=== PATIENT | male | born 1985 | race African-American/Black ===

== ENCOUNTER 2021-03-29 22:02 | Emergency (ER) | payer OTHER ==
[~2021-03-29] VITALS: Ht 175.3 cm; Wt 100.0 kg
[2021-03-30 02:00] VITALS: BP 129/83
[2021-03-30] MEDS ORDERED: LIDOCAINE 1% Multi-Dose 20 ML VIAL. INJ ONE (03:00)
--- NOTE | 2021-03-30 03:26 | PHYS DOC ---
Past Medical History Past Surgical History: No Surgical History Smoking Status: Never Smoker Alcohol Use: Occasionally General Adult EDM: Chief Complaint: LACERATION/AVULSION HPI: HPI: Patient is a 35 year old male who presents with a laceration of his left pinky finger. Was reaching into a trash can and cut himself on something sharp. He is unsure what the object was. States his tetanus is up-to-date. Ran his finger under a sink for copious irrigation prior to arrival. Occurred at approximately 9:30 PM. Review of Systems: Review of Systems: Integument: Reports laceration to left pinky finger Heart Score: C/O Chest Pain: N/A Current Medications: Current Medications Medications (Trade) Dose Ordered Sig/Jennifer Start Time Stop Time Status Last Admin Dose Admin Lidocaine HCl (Lidocaine 1% 20ml Vial) 20 ml 1X ONCE 03/30/21 03:00 03/30/21 03:01 DC 03/30/21 02:32 20 ML Allergies: Allergies: Allergies Coded Allergies Type Severity Reaction Last Updated Verified No Known Drug Allergies 03/30/21 No Physical Exam: PE: Constitutional: Well developed, well nourished, no acute distress, non-toxic appearance. [] Cardiovascular: Regular heart Lungs & Thorax: Normal work of breathing Skin: 2.5 cm laceration to the pinky finger oriented longitudinally. Hemostatic. Brisk cap refill to the pinky finger nailbed. Distal sensation intact. Able to fully flex and extend the finger. Extremities: No tenderness, no cyanosis, no clubbing, ROM intact, no edema. [] Neurologic: Alert and oriented X 3, normal motor function, normal sensory function, no focal deficits noted. [] Current Patient Data: Vital Signs: Vital Signs Date Time Temp Pulse Resp B/P (MAP) Pulse Ox O2 Delivery O2 Flow Rate FiO2 03/30/21 02:00 98.2 65 16 129/83 (98) 97 Room Air 98.2 EKG: EKG: [] Radiology/Procedures: Radiology/Procedures: Indication: Left pinky laceration Procedure: T the wound was irrigated copiously with tap water. The area was cleansed with iodine as well as the location for digital block. A digital block was performed with 1% lidocaine without epinephrine, approximately 4 cc, at the base of the left fifth finger with good effect. The wound was closed with #seven 4-0 Ethilon suture in a simple interrupted fashion. Total repaired wound length: 2.5 cm. Other Items: None The patient tolerated the procedure well. Complications: None.[] Course & Med Decision Making: Course & Med Decision Making Pertinent Labs and Imaging studies reviewed. (See chart for details) Laceration closed as above. Tdap up-to-date. Neurovascular intact. No evidence of tendinous injury. Wound care instructions provided. Dragon Disclaimer: Jessica Disclaimer: This electronic medical record was generated, in whole or in part, using a voice recognition dictation system. Departure Departure Impression: Primary Impression: Finger laceration Disposition: HOME / SELF CARE / HOMELESS Condition: STABLE Referrals: UNKNOWN PCP NAME (PCP) Additional Instructions: We repaired your laceration with sutures. These will need to come out in 7 days. Please schedule appointment with your primary care doctor, or visit in ED or urgent care to have these removed. Keep the area clean and dry. Keep it dressed. Use an ointment such as Neosporin or bacitracin on it. If you have increasing swelling, pain, redness, or warmth these are all signs of potential infection. If these occur please see your doctor. For pain tylenol and ibuprofen are best used on a schedule. Please alternate between the two. -Tylenol 1000 mg every 6 hours (do not exceed 4000 mg in one day) -Ibuprofen 400 mg every 6 hours. Take with food. Do not take for more than 1 week. REEMA MAJANO MD Mar 30, 2021 03:26
== END 2021-03-30 03:45 | disposition home or self-care (01) ==
LOC: ER 22:02
DX: S61.217A Laceration without foreign body of left little finger without damage to nail, initial encounter (principal); W26.8XXA Contact with other sharp object(s), not elsewhere classified, initial encounter; Y93.89 Activity, other specified; Y92.89 Other specified places as the place of occurrence of the external cause; Y99.8 Other external cause status
CPT/HCPCS: 12001; 99282; J3490